=== PATIENT | female | born 1970 | race Caucasian/White ===

== ENCOUNTER 2019-03-07 08:51 | Emergency (ER) | payer MEDICAID ==
[~2019-03-07] VITALS: Ht 162.6 cm; Wt 76.4 kg
[2019-03-07 08:54] VITALS: Ht 162.6 cm; Wt 76.4 kg
[2019-03-07] MEDS ORDERED: LIDOCAINE/MYLANTA 40 ML BTL PO STA (08:58)
[2019-03-07] MEDS ORDERED: FAMOTIDINE 20 MG INJ IV STA (08:58)
[2019-03-07] MEDS ORDERED: BELLADONNA/PHENOBARBITAL TAB PO STA (08:58)
[2019-03-07] MEDS ORDERED: ONDANSETRON 4 MG INJ IV STA (08:58)
[2019-03-07] MEDS ORDERED: SOD CHLORIDE 0.9% 1,000 ML IV STA (08:58)
[2019-03-07] MEDS ORDERED: FENTAnyl 50 MCG/ML VIAL IV ONE (09:30)
[2019-03-07] MEDS ORDERED: KETOROLAC 15 MG INJ IV STA (13:17)
[2019-03-07] MEDS ORDERED: METOCLOPRAMIDE 10 MG INJ IV ONE (13:30)
--- NOTE | 2019-03-07 15:04 | ERD ---
ER Documentation Chief Complaint Chief Complaint abdominal pain and headache x 1 hour HPI This is a 48-year-old female with a past medical history of a reported stroke with residual a mild residual left-sided facial droop, migraines who is presenting with moderate sharp epigastric pain and nausea, beginning approximately an hour prior to arrival. She does not endorse any alleviating or exacerbating factors. The patient denies changes to bowel movements or urination. She denies constipation or diarrhea. She denies black or bloody or tarry stools. She denies dysuria or hematuria or urgency or frequency. While in the waiting room, the patient's pain started to become more significant. She became diaphoretic and started to develop a left-sided headache with photophobia and worsening nausea. The patient does have a left- sided facial droop, but this is chronic for her and unchanged. The patient does not endorse any other focal deficits. She does not endorse any other weakness or numbness or tingling to the face or extremities. The patient denies feeling sick recently. The patient denies fever or chills. The patient has had no headache or vision changes. The patient does not endorse neck or back pain. The patient denies lightheadedness or dizziness. The patient has had no chest pain or trouble breathing. ROS All systems reviewed and are negative except as per history of present illness. Medications Home Meds No Active Prescriptions or Reported Meds Allergies Allergies: Coded Allergies: Penicillins (Verified Allergy, Unknown, 03/07/19) PMhx/Soc History of Surgery: Yes (RT VARICOSE VEIN SX) Anesthesia Reaction: No Hx Neurological Disorder: Yes (CVA 5-YEARS AGO W/ LT SIDED FACIAL DROOP, frequent migraines) Hx Respiratory Disorders: No Hx Cardiac Disorders: No Hx Psychiatric Problems: No Hx Miscellaneous Medical Probl: No Hx Alcohol Use: No Hx Substance Use: No Hx Tobacco Use: No Smoking Status: Never smoker FmHx Family History: No diabetes Physical Exam Vitals Vital Signs Date Temp Pulse Resp B/P (MAP) Pulse Ox O2 O2 Flow FiO2 Time Delivery Rate 03/07/19 48 18 124/82 99 Nasal 13:59 (96) Cannula 03/07/19 46 18 162/83 98 Nasal 11:18 (109) Cannula 03/07/19 42 18 188/93 98 Nasal 09:44 (124) Cannula 03/07/19 98.1 67 18 218/113 98 08:54 (148) Physical Exam Const: No apparent distress, well-developed, well-nourished Head: Normocephalic, Atraumatic Eyes: Normal Conjunctiva. Extraocular movements intact. Pupils equal, round and reactive to light ENT: Normal External Ears, Nose and Mouth. Neck: Full range of motion. No meningismus. Resp: Clear to auscultation bilaterally, No wheezes, rales or rhonchi Cardio: Regular rhythm. Mild bradycardia. No murmurs, rubs or gallops Abd: Soft, non distended. Epigastric abdominal pain. Normal bowel sounds Skin: No petechiae or rashes Back: No midline tenderness. No CVA tenderness Ext: No cyanosis, or edema Neur: Awake and alert, oriented 4. Mild left-sided facial droop, chronic. Otherwise cranial nerves intact. Normal strength, sensation and coordination. Psych: Anxious Result Diagram: 03/07/19 0913 03/07/19 0913 Results 24 hrs Laboratory Tests Test 03/07/19 09:13 03/07/19 12:05 White Blood Count 11.0 10^3/ul Red Blood Count 5.25 10^6/ul Hemoglobin 11.9 g/dl Hematocrit 38.5 % Mean Corpuscular Volume 73.3 fl Mean Corpuscular Hemoglobin 22.7 pg Mean Corpuscular Hemoglobin Concent 30.9 g/dl Red Cell Distribution Width 16.3 % Platelet Count 381 10^3/UL Mean Platelet Volume 10.6 fl Immature Granulocytes % 0.900 % Neutrophils % 56.5 % Lymphocytes % 33.1 % Monocytes % 8.9 % Eosinophils % 0.2 % Basophils % 0.4 % Nucleated Red Blood Cells % 0.0 /100WBC Immature Granulocytes # 0.100 10^3/ul Neutrophils # 6.2 10^3/ul Lymphocytes # 3.6 10^3/ul Monocytes # 1.0 10^3/ul Eosinophils # 0.0 10^3/ul Basophils # 0.0 10^3/ul Nucleated Red Blood Cells # 0.0 10^3/ul Prothrombin Time 12.2 Sec Prothrombin Time Ratio 1.0 INR International Normalized Ratio 0.89 Sodium Level 143 mmol/L Potassium Level 3.9 mmol/L Chloride Level 105 mmol/L Carbon Dioxide Level 24 mmol/L Anion Gap 14 Blood Urea Nitrogen 18 mg/dl Creatinine 0.73 mg/dl Est Glomerular Filtrat Rate mL/min > 60 mL/min Glucose Level 126 mg/dl Calcium Level 10.4 mg/dl Total Bilirubin 0.3 mg/dl Direct Bilirubin 0.00 mg/dl Indirect Bilirubin 0.3 mg/dl Aspartate Amino Transf (AST/SGOT) 24 IU/L Alanine Aminotransferase (ALT/SGPT) 19 IU/L Alkaline Phosphatase 87 IU/L Troponin I < 0.012 ng/ml Total Protein 8.9 g/dl Albumin 5.1 g/dl Globulin 3.80 g/dl Albumin/Globulin Ratio 1.34 Lipase 104 U/L Serum HCG, Qualitative NEGATIVE Urine Color YELLOW Urine Clarity SLIGHTLY CLOUDY Urine pH 6.0 Urine Specific Jackson 1.017 Urine Ketones NEGATIVE mg/dL Urine Nitrite POSITIVE mg/dL Urine Bilirubin NEGATIVE mg/dL Urine Urobilinogen NEGATIVE mg/dL Urine Leukocyte Esterase NEGATIVE Kirti/ul Urine Microscopic RBC 3 /HPF Urine Microscopic WBC 1 /HPF Urine Squamous Epithelial Cells FEW /HPF Urine Bacteria FEW /HPF Urine Mucus FEW /HPF Urine Hemoglobin NEGATIVE mg/dL Urine Glucose NEGATIVE mg/dL Urine Total Protein 1+ mg/dl Current Medications Medications Dose Sig/Lui Start Time Status Last (Trade) Ordered Route PRN Stop Time Admin Dose Reason Admin Sodium 1,000 ml @ Q1H STAT 03/07/19 DC 03/07/19 Chloride 1,000 mls/hr IV 08:58 03/07/19 09:22 09:57 Ondansetron 4 mg ONCE STAT 03/07/19 DC 03/07/19 HCl (Zofran IV 08:58 03/07/19 09:22 Inj) 09:00 Famotidine 20 mg ONCE STAT 03/07/19 DC 03/07/19 (Pepcid Iv) IV 08:58 03/07/19 09:22 09:00 40 ml ONCE STAT 03/07/19 DC 03/07/19 Miscellaneous PO 08:58 03/07/19 08:58 Medication 09:00 (Gi Cocktail (2)) Belladonna/ 2 tab ONCE STAT 03/07/19 DC 03/07/19 Phenobarbital PO 08:58 03/07/19 08:58 () 09:00 Fentanyl 50 mcg ONCE ONCE 03/07/19 DC 03/07/19 (Sublimaze) IV 09:30 03/07/19 09:22 09:31 Ketorolac 15 mg ONCE STAT 03/07/19 DC 03/07/19 Tromethamine IV 13:17 03/07/19 13:57 (Toradol) 13:19 5 mg ONCE ONCE 03/07/19 DC 03/07/19 Metoclopramid IV 13:30 03/07/19 13:57 e HCl 13:31 (Reglan) Procedures/MDM MDM The patient's presentation warrants further investigation. Previous medical records, if available, were reviewed. LABS The patient's laboratory testing was obtained and reviewed. No emergent treatment was required unless described below. CBC: Mild leukocytosis without shift, likely reactive. Microcytic anemia, not emergent. Normal platelet count. Chemistry: No E/o severe acidosis or alkalosis or renal failure or liver disease or diabetic ketoacidosis Lipase: No E/o pancreatitis PT/INR: No E/o significant coagulopathy Troponin: No E/o acute ischemia Urine: Positive for nitrites. Otherwise negative for acute infection. No hematuria. Urine culture sent. EKG EKG read by me: Rate/Rhythm: Sinus bradycardia at 46 bpm. Intervals: Normal [place]: Normal Impression: No evidence of acute ischemia. Sinus bradycardia. IMAGING Imaging and Radiology interpretation reviewed. CXR FINDINGS: Cardiomediastinal silhouette is normal. There is no pneumothorax or pleural effusion. There is no focal pulmonic consolidation. IMPRESSION: No acute pulmonary abnormality. Electronically viewed and signed by Physician Kylie on 03/07/2019 09:37 CT head FINDINGS: The sulcal gyral pattern is unremarkable without evidence of effacement. The montejo-white matter differentiation is intact. No masses, edema or shift is identified. There are no intraparenchymal or extraaxial fluid collections. There is a small air-fluid level in the left maxillary sinus. The remaining paranasal sinuses and mastoid air cells are well-aerated. The skull base and calvarium are intact. IMPRESSION: 1. There is a small air-fluid level in the left maxillary sinus. 2. Otherwise, no significant intracranial abnormalities are identified. CT may be insensitive in the detection of acute ischemia. Electronically viewed and signed by Physician Romana on 03/07/2019 09:36 CT abdomen pelvis FINDINGS: The visualized portions of the lung bases demonstrate mild bibasilar atelectasis. Evaluation of the intra-abdominal solid organs is limited on this noncontrast examination. The liver appears normal in size. There is no intra or extrahepatic biliary dilatation. The gallbladder is unremarkable by CT criteria. The spleen, pancreas, and adrenal glands are unremarkable. The kidneys are symmetric in size. No renal, ureteral, or bladder calculi are identified. No perinephric inflammatory changes are identified. The urinary bladder is grossly unremarkable. The bowel demonstrates normal course and caliber. There is no evidence of bowel obstruction. The appendix is normal in appearance. There is moderate volume stool throughout the colon. There is small free fluid in the pelvis. No intraperitoneal free air or abscess is identified. The uterus and adnexa are unremarkable. The aorta is normal in caliber. No retroperitoneal, mesenteric, or inguinal lymphadenopathy is identified. The osseous structures demonstrate degenerative changes of the spine at L5-S1 with intervertebral disc space narrowing discogenic endplate changes. No significant subcutaneous soft tissue abnormalities are seen. IMPRESSION: 1. Limited, noncontrast CT of the abdomen and pelvis. No acute intra-abdominal abnormality is appreciated. 2. Moderate volume stool throughout the colon. Clinical correlation for constipation recommended. Electronically viewed and signed by Ophelia Coleman MD, on 03/07/2019 10:46 TREATMENT/DISPOSITION The patient's initial complaint was epigastric abdominal pain. Gastritis versus GERD versus PUD are all possibilities. The patient was treated with IV fluids, Zofran, Pepcid and a GI cocktail with some improvement of her symptoms. She was later given fentanyl with resolution of her abdominal pain. A CT was completed that did reveal moderate constipation. This could also be the etiology of her discomfort. I do not suspect viscus perforation. The patient does not have any evidence of peritonitis. The patient does not have clinical symptoms concerning for mesenteric ischemia or ischemic colitis. The patient does not have right upper quadrant tenderness, and I have low suspicion for gallstones, cholecystitis or biliary colic. The patient does not have left upper quadrant tenderness. I have low suspicion for pancreatitis. The patient does not have any right lower quadrant tenderness, or periumbilical tenderness. I have low suspicion for appendicitis. The patient does not have suprapubic tenderness. I have decreased suspicion for cystitis. The patient did have nitrites in her urine, but the urinalysis was otherwise unremarkable. A urine culture was sent off. The pat ient does not have any left lower quadrant tenderness, and I have low suspicion for diverticulosis or diverticulitis. The patient does not have any flank tenderness. The patient does not have gross hematuria. I have decreased suspicion for nephrolithiasis or renal colic. The patient does not have any palpable pulsatile mass or severe abdominal pain radiating to the back. I have low suspicion for aortic aneurysm, dissection or rupture. The patient also endorses a headache. Differential diagnosis includes migraine, tension headache, cluster headache. The patient has a history of migraines and was treated for migraine with Toradol, IV fluids and Reglan. The patient endorses resolution of her headache. The patient has no focal deficits. The neurologic exam is reassuring. She does have a chronic left-sided facial droop, but she does not have any new symptoms that are concerning. The patient's CT head is unremarkable for any acute pathology. I have decreased suspicion for cerebral ischemia. There was no trauma or injury. There is no personal or family history of cerebral aneurysm. This is not the worst headache of the patient's life. It was not acutely severe. It is been progressive in nature. I have decreased suspicion for SAH or other ICH. I have low suspicion for temporal arteritis, cavernous venous thrombosis, subdural hematoma, epidural hematoma, meningitis. The patient was found to be bradycardic when she falls asleep or bears down. When she is stimulated, the patient's heart rate improves to the 60s. I have low suspicion for sick sinus syndrome. The patient does not have symptoms concerning for a cardiac pathology. I do not see evidence of acute coronary syndrome. The patient's blood pressure remained stable throughout assessment. The patient may follow-up for this in an outpatient setting. DISCHARGE Upon reevaluation of the patient, symptoms have improved. No emergent diagnoses were identified. At this time, I feel that the patient stable for discharge. The patient was instructed to follow-up with a primary care physician in 1-3 days. The patient will be given strict precautions with which to return to the emergency department. Prescriptions: Reglan, Pepcid The patient's blood pressure was elevated at greater than 120/80 while in the emergency department. The patient was otherwise stable with no evidence of hypertensive urgency or emergency. The patient does not require admission for blood pressure control. I have discussed with the patient the risks of hypertension. I have instructed the patient to return to the ER for any new or worsening symptoms including chest pain, shortness of breath, headache, blurred vision, confusion, nausea, vomiting or LOC. I have advised the patient to follow up with the primary care physician for outpatient monitoring and treatment for hypertension in 1-3 days. Disclaimer: Inadvertent spelling and grammatical errors are likely due to EHR/dictation software use and do not reflect on the overall quality of patient care. Note that the electronic time recorded on this note does not necessarily reflect the actual time of the patient encounter. Departure Diagnosis: Primary Impression: Epigastric pain Additional Impressions: Nausea Headache Headache type: unspecified Headache chronicity pattern: acute headache Intractability: not intractable Qualified Codes: R51 - Headache Leukocytosis Leukocytosis type: unspecified Qualified Codes: D72.829 - Elevated white blood cell count, unspecified Microcytic anemia Condition: Stable Patient Instructions: Anemia, Iron Deficiency (Adult), Bradycardia, Epigastric Pain (Uncertain Cause), Nausea, Self-Care for Headaches Additional Instructions: Thank you for for coming to [facility] for your care today. Please ask your nurse or provider if you have questions about your care today and do not leave until all your questions have been answered. Please use any medications given as directed and follow-up with your doctor (or the doctor you were referred to) in the next 1-3 days. If you do not have a primary care doctor you may follow up at the [facility] or formerly [facility], [facility] (listed below). You may also use motrin and tylenol as needed for fever and/or pain unless instructed otherwise by your provider or nurse. Indications for more urgent follow-up have been discussed, but you may return to the Emergency Department at ANY time for any worrisome or worsening symptoms. If you have abdominal pain, please know that no test or exam you received is perfect and you should follow up within 8 hours for continued pain. If you had any imaging studies today, such as an X-Ray or CT Scan, these studies will be reviewed later by a radiologist. You will be called if there are important findings that were not identified today, so make sure the contact information you provided at registration is correct. If you received any narcotic pain control medicine today, such as Vicodin, Morphine or Dilaudid, your coordination and judgment may be affected for a number of hours. Please do not drive or operate heavy machinery, and you may want someone to assist you at home. If you were given a prescription for narcotic medication, be aware that it is very addictive- use sparingly and only if necessary. PLEASE SEEK FURTHER EVALUATION AND MANAGEMENT AT YOUR DOCTORS OFFICE WITHIN THE NEXT 1-3 DAYS. IT IS YOUR RESPONSIBILITY TO MAKE AN APPOINTMENT FOR FOLOW-UP CARE. IF YOU HAVE A PRIMARY DOCTOR, PLEASE CALL THEIR OFFICE TO SCHEDULE AN APPOINTMENT FOR FOLLOW UP. IF YOU DO NOT HAVE A PRIMARY DOCTOR YOU CAN CALL OUR PHYSICIAN REFERRAL HOTLINE AT IF YOU CAN NOT AFFORD TO SEE A PHYSICIAN YOU CAN CHOSE FROM THE FOLLOWING [facility] CLINICS[facility] [address] [facility]. [facility] [address] [facility]. [facility] [address] [facility] [facility] [address] [facility]. [facility] [address] [facility]. [facility]. [address] HERIBERTO NEVES MD March 07, 2019 15:01
[2019-03-07] MEDS ORDERED: METO10TA92 PO (15:05)
[2019-03-07] MEDS ORDERED: FAMO-96 PO (15:05)
[2019-03-07] MEDS ORDERED: POLY17PO6 PO (15:06)
[2019-03-07 15:27] VITALS: BP 134/62; PULSE 69; RESP 18
== END 2019-03-07 15:31 | disposition home or self-care (01) ==
LOC: E/R 08:51
DX: R10.13 Epigastric pain (principal); R11.0 Nausea; R51 Headache; D72.829 Elevated white blood cell count, unspecified; D50.9 Iron deficiency anemia, unspecified; Z86.73 Personal history of transient ischemic attack (TIA), and cerebral infarction without residual deficits
CPT/HCPCS: 36415; 70450; 71045; 74176; 80053; 81001; 83690; 84484; 84703; 85025; 85610; 87086; 96374; 96375; J1885; J2405; J2765; J3010; J7030; Z7502; Z7610; 93005